=== PATIENT | female | born 1980 | race African-American/Black ===

== ENCOUNTER 2024-07-10 17:26 | Emergency (ER) | payer BC ==
[~2024-07-10] VITALS: Ht 154.9 cm; Wt 64.9 kg
[2024-07-10 17:54] VITALS: BP 154/90; PULSE 106; RESP 20; TEMP 98.9
[2024-07-10] MEDS ORDERED: PANT40EC PO (18:25)
[2024-07-10] MEDS: ALUMINUM HYD/MAG/SIMETHICONE 30 ML UDC PO ONE (18:48)
== END 2024-07-10 19:04 | disposition home or self-care (01) ==
LOC: MED 17:26
DX: K29.70 Gastritis, unspecified, without bleeding (principal); K21.9 Gastro-esophageal reflux disease without esophagitis; Z79.899 Other long term (current) drug therapy; Z98.890 Other specified postprocedural states
CPT/HCPCS: 81025; 99283